=== PATIENT | female | born 1970 | race Caucasian/White ===

== ENCOUNTER 2018-02-13 15:19 | Inpatient (IN) ==
[2018-02-13 16:05] LABS: Basophils % 0.2 % (0.1-2.0); Eosinophils # 0.1 K/mm3 (0.0-0.4); Eosinophils % 0.4 % (0.1-12.0); Hemoglobin 15.2 g/dL (12.2-16.2); Lymphocytes # 1.6 K/mm3 (0.7-4.5); Mean Corpuscular HGB Conc 32.4 g/dL (31.8-35.4); Mean Corpuscular Hemoglobin 29.8 pg (27.0-31.2); Mean Platelet Volume 7.2 fl (7.4-10.4); Monocytes # 0.9 K/mm3 (0.1-1.0); Monocytes % 4.8 % (1.7-9.3); Neutrophils # 15.2 K/mm3 (1.8-7.8); Neutrophils % 85.6 % (37.0-80.0); Platelet Count 700 K/mm3 (142-424); Red Blood Count 5.11 M/mm3 (4.20-5.40); Red Cell Distribution Width 14.3 % (11.5-17.5); White Blood Count 17.8 K/mm3 (4.8-10.8)
--- NOTE | 2018-02-13 16:15 | Emergency Department Note ---
ED Disposition Clinical Impression: Hyponatremia Pancreatitis Qualifiers: Chronicity: acute Pancreatitis type: unspecified pancreatitis type Acute pancreatitis complication: unspecified Qualified Code(s): K85.90 - Acute pancreatitis without necrosis or infection, unspecified Nausea & vomiting Qualifiers: Vomiting type: unspecified Vomiting Intractability: intractable Qualified Code(s): R11.2 - Nausea with vomiting, unspecified Abdominal pain Qualifiers: Abdominal location: generalized Qualified Code(s): R10.84 - Generalized abdominal pain Disposition: Admitted as Observation Condition on Discharge: Fair Instructions: DI for Acute Abdomen, Acute Abdominal Pain Additional Instructions: DI for Pancreatitis DI for Hyponatremia DI for Nausea nad vomiting Referrals: Provider,Referral, MD [Primary Care Provider] - - Critical Care Critical Care Time: No Attestation: On 02/13/18, the high probability of a clinically significant, sudden or life threatening deterioration of the following system(s) required my full and direct attention, intervention and personal management. The time I documented below is in addition to time spent performing reported procedures but includes the following listed in this critical care notation. Medical Decision Making - Medical Records Medical records reviewed: Yes: I reviewed the patient's medical records. - Elías Inquiry Pt receiving controlled substance: No Elías was queried for this patient: No Vital Signs: 02/13/18 15:31 02/13/18 16:48 Pulse Rate [Left Radial] 124 H 118 H Respiratory Rate 40 H Blood Pressure [Right Arm] 141/91 H 130/78 Blood Pressure Mean [Right Arm] 107 95 Blood Pressure Source [Right Arm] Automatic Cuff Automatic Cuff Blood Pressure Position [Right Arm] Sitting Sitting 02 Sat by Pulse Oximetry 98 99 Oxygen Delivery Method Room Air Room Air - Lab Data Lab results reviewed: Yes: I reviewed the patient's lab results. Lab Results 02/13/18 15:50: WBC 17.8 H, RBC 5.11, Hgb 15.2, Hct 47.0, MCV 92.0, MCH 29.8, MCHC 32.4, RDW 14.3, Plt Count 700 H, MPV 7.2 L, Neut % (Auto) 85.6 H, Lymph % (Auto) 9.0 L, [place] % (Auto) 4.8, Eos % (Auto) 0.4, Baso % (Auto) 0.2, Neut # (Auto) 15.2 H, Lymph # (Auto) 1.6, [place] # (Auto) 0.9, Eos # (Auto) 0.1, Baso # (Auto) 0.0, Total Counted 100, Neutrophils % (Manual) 84 H, Lymphocytes % (Manual) 10, Monocytes % (Manual) 6, Platelet Estimate Moderate increase, RBC Morphology Normal 02/13/18 15:50: Sodium 118 L, Potassium 4.7, Chloride 83 L, Carbon Dioxide 17 L, Anion Gap 22.7 H, BUN 29 H, Creatinine 2.57 H, Estimated Creat Clear 26, Estimated GFR 20 L, Est GFR ( Amer) 24 L, Glucose 106, Calcium 10.0, Total Bilirubin 0.8, AST 91 H, ALT 63, Alkaline Phosphatase 315 H, Total Protein 8.2, Albumin 3.2 L, Globulin 5.0 H, Albumin/Globulin Ratio 0.6 L, Amylase 191 H, Lipase 785 H 02/13/18 15:50: Lactate 2.4 H Result diagrams: 02/13/18 15:50 02/13/18 15:50 Orders (Tests/Meds): ED MEDICATIONS Discontinued Medications Generic Name Dose Route Start Last Admin Trade Name Freq PRN Reason Stop Dose Admin Sodium Chloride 1,000 mls @ 999 mls/hr 02/13/18 16:15 02/13/18 16:18 Sod Chlor 0.9% 1000ml Bag IV 02/13/18 17:15 999 mls/hr .Q1H1M WHITNEY Administration Piperacillin Sod/Tazobactam 100 mls @ 200 mls/hr 02/13/18 17:45 Sod 3.375 gm/ Sodium Chloride IV 02/13/18 17:46 ONCE ONE Protocol Ketorolac Tromethamine 30 mg 02/13/18 16:18 02/13/18 17:42 Toradol 30mg/Ml Vial IV 02/13/18 16:19 30 mg ONCE ONE Administration Ondansetron HCl 8 mg 02/13/18 16:09 02/13/18 16:18 Zofran 4mg/2ml Vial IV 02/13/18 16:10 8 mg ONCE ONE Administration ORDERS Category Date Time Status CT abdomen pelvis wo con Stat Cat Scan 02/13/18 16:14 Taken Blood Culture Stat Micro 02/13/18 15:50 Received - CT Data CT Scan: Abdomen, Pelvis Time Received: 18:[address] Reviewed: Yes: I have reviewed the patient's CT results, I have viewed the radiologist's interpretation - Physician Consults Physician Consulted: Dr. Tinajero Time: 18:03 Nausea/Vomiting/Diarrhea HPI - General Chief complaint: Abdominal Pain Stated complaint: Abd pain,Vomiting,weakness Time Seen by Provider: 02/13/18 15:50 Mode of Arrival: Ambulatory Source of Information: Patient Limitations: No Limitations Description of Symptoms (Recalled from ER Triage Doc. by RN): to ed per pvt car with c/o ruq abd pain, vomiting pt with hx of pancreatitis currently has biliary drain inplace pt sees GI specialist at [facility]. - History of Present Illness MD complaint: nausea, vomiting, abdominal pain Onset (ago): day(s) (2) Description of Vomiting: food contents Associated Abdominal Pain: Yes Location of pain: RUQ Radiation: other (none) Severity: moderate Severity scale (1-10): 6 Quality: sharp Consistency: constant Relieving factors: none Exacerbating factors: none Context: other (chronic pancreatitis) - Related Data Home Medications Medication Instructions Recorded Confirmed Unobtainable 02/13/18 02/13/18 Allergies Allergy/AdvReac Type Severity Reaction Status Date / Time Penicillins Allergy Verified 02/13/18 15:35 [facility] History I have reviewed the patient's past medical history: Yes - Social History Smoking Status: Current every day smoker Tobacco Type: cigarettes Alcohol Intake: never - Psychiatric History Expresses thoughts of harming self/others: None Suicide Plan Description: No Plan ROS Obtained: Yes All systems reviewed & no additional complaints - Constitutional Constitutional: Reports system reviewed and no additional complaints, except as docu - Cardiovascular Cardiovascular: Reports system reviewed and no additional complaints, except as docu - Respiratory Respiratory: Yes system reviewed and no additional complaints, except as docu - Gastrointestinal Gastrointestingal: Reports: abdominal pain, nausea, vomiting. Denies: constipation, diarrhea - Genitourinary Female Genitourinary: Denies dysuria, Denies urinary frequency, Denies urinary hesitancy, Denies urinary urgency - Neurologic Neurologic: Reports system reviewed and no additional complaints, except as docu Physical Exam - General General appearance: alert, in distress (mild ) - Head Head exam: atraumatic, normocephalic, normal inspection - Neck Neck exam: Present: normal inspection, full ROM, trachea midline. Absent: meningismus, lymphadenopathy - Respiratory Respiratory exam: Present: normal lung sounds bilaterally. Absent: respiratory distress - Cardiovascular Cardiovascular exam: Present: regular rate, normal rhythm. Absent: JVD - Abdominal Exam Abdominal exam: Present: soft, tenderness (diffuse), normal bowel sounds. Absent: distention, guarding - Back Exam Back exam: Present: normal inspection. Absent: tenderness - Neurological Exam Neurological exam: Present: alert, oriented X3 - Psychiatric Psychiatric exam: Present: normal affect, normal mood - Skin Skin exam: Present: warm, dry, intact, normal color
[2018-02-13 16:31] LABS: Albumin Level 3.2 gm/dL (3.4-5.0); Albumin/Globulin Ratio 0.6 (1.1-1.8); Anion Gap 22.7 mEq/L (5-15); Bilirubin,Total 0.8 mg/dL (0.2-1.0); Total Protein,Serum 8.2 gm/dL (6.4-8.2)
[2018-02-13 16:36] LABS: Potassium 4.7 mmoL/L (3.5-5.1)
[2018-02-13 17:16] LABS: Lymphocytes % 10 % (10-50); Monocytes % 6 % (2-9); Neutrophils % 84 % (42-76); Total Cells Counted 100
[2018-02-13 17:18] LABS: RBC Morphology Normal
[2018-02-14 06:46] LABS: Basophils % 0.2 % (0.1-2.0); Eosinophils # 0.1 K/mm3 (0.0-0.4); Eosinophils % 0.6 % (0.1-12.0); Hematocrit 42.1 % (37.0-47.0); Lymphocytes # 2.5 K/mm3 (0.7-4.5); Lymphocytes % 13.5 % (10-50); Mean Corpuscular HGB Conc 32.1 g/dL (31.8-35.4); Mean Corpuscular Hemoglobin 29.9 pg (27.0-31.2); Mean Corpuscular Volume 93.4 fl (81-99); Mean Platelet Volume 7.2 fl (7.4-10.4); Monocytes % 5.3 % (1.7-9.3); Neutrophils # 14.6 K/mm3 (1.8-7.8); Neutrophils % 80.3 % (37.0-80.0); Platelet Count 562 K/mm3 (142-424); Red Blood Count 4.51 M/mm3 (4.20-5.40); Red Cell Distribution Width 14.3 % (11.5-17.5); White Blood Count 18.2 K/mm3 (4.8-10.8)
[2018-02-14 06:48] LABS: Albumin/Globulin Ratio 0.7 (1.1-1.8); Anion Gap 16.8 mEq/L (5-15); Bilirubin,Total 0.7 mg/dL (0.2-1.0); Globulin 4.4 gm/dl (1.3-3.2); Potassium 3.8 mmoL/L (3.5-5.1); Total Protein,Serum 7.4 gm/dL (6.4-8.2)
[2018-02-14 06:56] LABS: Hemoglobin 13.6 g/dL (12.2-16.2)
[2018-02-14 06:59] LABS: Calcium 8.8 mg/dL (8.5-10.1)
--- NOTE | 2018-02-14 08:38 | Pharmacy Consult Notes ---
[facility] Pharmacy VTE Monitoring - Patient Demographics Admission date: 02/13/18 Report Date: 02/14/18 Time: 08:38 Allergies/Adverse Reactions: Patient Allergies Penicillins Allergy (Verified 02/13/18 15:35) Height: 1.65 m Weight: 49.47 kg Patient Problems: Current Active Problems Pancreatitis (Acute) Nausea & vomiting (Acute) Hyponatremia (Acute) Abdominal pain (Acute) - VTE Risk Labs: VTE Related Lab Results Hgb 13.6 g/dL (12.2-16.2) D 02/14/18 06:14 Hct 42.1 % (37.0-47.0) 02/14/18 06:14 Plt Count 562 K/mm3 (142-424) H 02/14/18 06:14 BUN 36 mg/dL (7-18) H 02/14/18 06:14 Creatinine 3.03 mg/dL (0.55-1.02) H 02/14/18 06:14 Estimated Creat Clear 18 mL/min (50-200) 02/14/18 06:14 Was VTE Risk Assessment Performed: Yes VTE Score: 8 VTE Risk Level: Moderate Risk - Prophylaxis VTE Prophylaxis Ordered?: Yes Types of VTE Prophylaxis: TEDS Knee High Location of Applied Device: Bilateral Lower Extremeties - VTE Diagnosis Confirmed Treatment or plan recommended: Continue Current Treatment
--- NOTE | 2018-02-14 09:02 | History & Physical Report ---
*Admission Date: 02/13/18 <Naima Qureshi 02/14/18 09:10> *Chief complaint: abdominal pain, nausea, vomiting <Naima Qureshi 02/14/18 09:10> *History of present illness: Ms. Miranda is a 47-year-old female who is a patient of [facility] in [place]. She has a history of chronic alcoholic pancreatitis and also has a biliary drain in place. She sees a GI specialist at [facility] and most of her admissions have been to [facility]. She states she began having epigastric pain that then radiated to her back and the entire rest of her abdomen. She had vomiting, nausea, and diarrhea and became so weak she was unable to walk on her own. She was brought to the emergency room for evaluation and treatment and was admitted. <Naima Qureshi 02/14/18 09:10> [facility] History Medical History: Reports:: Hypertension, MRSA Denies:: Cancer (possible pancreatic), Diabetes Mellitus Type 1, Diabetes Mellitus Type 2 <Naima Qureshi 02/14/18 09:10> Other Medical History: Reports: Anemia, Fibromyalgia, Thyroid Disease <Naima Qureshi 02/14/18 09:10> Comment: Chronic pancreatitis, alcoholism, pancreatic pseudocyst <Naima Qureshi 02/14/18 09:10> Laterality Cases: Bilateral: Tonsillectomy <Naima Qureshi 02/14/18 09:10> Other Surgeries: Yes: Appendectomy, Bariatric Surgery, Cholecystectomy <Naima Qureshi 02/14/18 09:10> Amputation: No <Naima Qureshi 02/14/18 09:10> Fractures: No <Naima Qureshi 02/14/18 09:10> Comment: Biliary drain, Removal of necrotic skin around right jugular vein from cat scratch disease <Naima Qureshi 02/14/18 09:10> - *Social History Educational Level: Completed High School <Naima Qureshi 02/14/18 09:10> Smoking Status: Current every day smoker <Naima Qureshi 02/14/18 09:10> Tobacco Type: cigarettes <Naima Qureshi 02/14/18 09:10> # Packs/Day (cigarettes): 1 <TitusNaima 02/14/18 09:10> Alcohol Intake: former <Naima Qureshi 02/14/18 09:10> Substance Use Type: marijuana <Naima Qureshi 02/14/18 09:10> Last Used Substance: unknown <Naima Qureshi 02/14/18 09:10> Occupational Status: unemployed <Naima Qureshi 02/14/18 09:10> Housing: house <Naima Qureshi 02/14/18 09:10> Household Members: significant other, family, friend(s) <Naima Qureshi 02/14/18 09:10> - Psychiatric History Expresses thoughts of harming self/others: None <Naima Qureshi 02/14/18 09:10> Suicide Plan Description: No Plan <Naima Qureshi 02/14/18 09:10> *Family Hx:: Asthma, Cancer, Thyroid Disorder <Naima Qureshi 02/14/18 09:10> Review of Systems - Constitutional Reports weakness <LiorJerilyn 02/14/18 10:11> Reports anorexia, Reports weakness, Denies chills, Denies fever(s) <Greyson Qureshia 02/14/18 09:10> - Eyes Denies blurry vision, Denies double vision <TitusNaima 02/14/18 09:10> - ENT Denies nasal congestion, [facility] sore throat [facility] 02/14/18 09:10> - *Cardiovascular Denies chest pain, Denies rapid, pounding, or irregular heartbeat <Naima Qureshi 02/14/18 09:10> - *Respiratory Denies shortness of breath <[facility] 02/14/18 10:11> Reports shortness of breath, Denies cough <[facility] 02/14/18 09:10> - *Gastrointestinal Reports abdominal pain, Reports nausea, Denies loose stools, Denies vomiting <[facility] 02/14/18 10:11> Reports abdominal pain, Reports loose stools, Reports nausea, Reports vomiting <Greyson Qureshia 02/14/18 09:10> - *Genitourinary Denies difficulty urinating, Denies painful urination <Naima Qureshi - 02/14/18 09:10> - *Musculoskeletal Reports back pain <Jerilyn Ballard 02/14/18 10:11> Reports joint pain (leg), Reports back pain <Naima Qureshi - 02/14/18 09:10> - *Neurologic Reports weakness, Denies headache(s), Denies dizziness <Naima Qureshi 02/14/18 09:10> Meds Home Medications Medication Instructions Recorded Confirmed Type Unobtainable 02/13/18 02/13/18 History <Jerilyn Ballard 02/14/18 10:11> Allergies Allergy/AdvReac Type Severity Reaction Status Date / Time Penicillins Allergy Verified 02/13/18 15:35 lisinopril AdvReac Verified 02/14/18 09:06 <Jerilyn Ballard 02/14/18 10:11> Exam Vital signs and Labs for Last 24 Hours: Temp Pulse Resp BP Pulse Ox 98.6 F 97 H 16 115/88 100 02/14/18 08:00 02/14/18 08:00 02/14/18 09:31 02/14/18 08:00 02/14/18 08:00 Laboratory Results - last 24 hr 02/13/18 15:50: WBC 17.8 H, RBC 5.11, Hgb 15.2, Hct 47.0, MCV 92.0, MCH 29.8, MCHC 32.4, RDW 14.3, Plt Count 700 H, MPV 7.2 L, Neut % (Auto) 85.6 H, Lymph % (Auto) 9.0 L, [place] % (Auto) 4.8, Eos % (Auto) 0.4, Baso % (Auto) 0.2, Neut # (Auto) 15.2 H, Lymph # (Auto) 1.6, [place] # (Auto) 0.9, Eos # (Auto) 0.1, Baso # (Auto) 0.0, Total Counted 100, Neutrophils % (Manual) 84 H, Lymphocytes % (Manual) 10, Monocytes % (Manual) 6, Platelet Estimate Moderate increase, RBC Morphology Normal 02/13/18 15:50: Sodium 118 L, Potassium 4.7, Chloride 83 L, Carbon Dioxide 17 L, Anion Gap 22.7 H, BUN 29 H, Creatinine 2.57 H, Estimated Creat Clear 26, Estimated GFR 20 L, Est GFR ( Amer) 24 L, Glucose 106, Calcium 10.0, Total Bilirubin 0.8, AST 91 H, ALT 63, Alkaline Phosphatase 315 H, Total Protein 8.2, Albumin 3.2 L, Globulin 5.0 H, Albumin/Globulin Ratio 0.6 L, Amylase 191 H, Lipase 785 H 02/13/18 15:50: Lactate 2.4 H 02/13/18 20:16: Lactate 2.0 02/14/18 06:14: WBC 18.2 H, RBC 4.51, Hgb 13.6 D, Hct 42.1, MCV 93.4, MCH 29.9, MCHC 32.1, RDW 14.3, Plt Count 562 H, MPV 7.2 L, Neut % (Auto) 80.3 H, Lymph % (Auto) 13.5, [place] % (Auto) 5.3, Eos % (Auto) 0.6, Baso % (Auto) 0.2, Neut # (Auto) 14.6 H, Lymph # (Auto) 2.5, [place] # (Auto) 1.0, Eos # (Auto) 0.1, Baso # (Auto) 0.0 02/14/18 06:14: Sodium 118 L, Potassium 3.8, Chloride 85 L, Carbon Dioxide 20 L, Anion Gap 16.8 H, BUN 36 H, Creatinine 3.03 H, Estimated Creat Clear 18, Estimated GFR 16 L*, Est GFR ( Amer) 20 L, Glucose 105, Calcium 8.8 D, Magnesium 2.0, Total Bilirubin 0.7, AST 73 H, ALT 61, Alkaline Phosphatase 280 H , Total Protein 7.4, Albumin 3.0 L, Globulin 4.4 H, Albumin/Globulin Ratio 0.7 L <Sound,Jerilyn - 02/14/18 10:11> Temp Pulse Resp BP Pulse Ox 98.6 F 97 H 18 115/88 100 02/14/18 08:00 02/14/18 08:00 02/14/18 08:00 02/14/18 08:00 02/14/18 08:00 Laboratory Results - last 24 hr 02/13/18 15:50: WBC 17.8 H, RBC 5.11, Hgb 15.2, Hct 47.0, MCV 92.0, MCH 29.8, MCHC 32.4, RDW 14.3, Plt Count 700 H, MPV 7.2 L, Neut % (Auto) 85.6 H, Lymph % (Auto) 9.0 L, [place] % (Auto) 4.8, Eos % (Auto) 0.4, Baso % (Auto) 0.2, Neut # (Auto) 15.2 H, Lymph # (Auto) 1.6, [place] # (Auto) 0.9, Eos # (Auto) 0.1, Baso # (Auto) 0.0, Total Counted 100, Neutrophils % (Manual) 84 H, Lymphocytes % (Manual) 10, Monocytes % (Manual) 6, Platelet Estimate Moderate increase, RBC Morphology Normal 02/13/18 15:50: Sodium 118 L, Potassium 4.7, Chloride 83 L, Carbon Dioxide 17 L, Anion Gap 22.7 H, BUN 29 H, Creatinine 2.57 H, Estimated Creat Clear 26, Estimated GFR 20 L, Est GFR ( Amer) 24 L, Glucose 106, Calcium 10.0, Total Bilirubin 0.8, AST 91 H, ALT 63, Alkaline Phosphatase 315 H, Total Protein 8.2, Albumin 3.2 L, Globulin 5.0 H, Albumin/Globulin Ratio 0.6 L, Amylase 191 H, Lipase 785 H 02/13/18 15:50: Lactate 2.4 H 02/13/18 20:16: Lactate 2.0 02/14/18 06:14: WBC 18.2 H, RBC 4.51, Hgb 13.6 D, Hct 42.1, MCV 93.4, MCH 29.9, MCHC 32.1, RDW 14.3, Plt Count 562 H, MPV 7.2 L, Neut % (Auto) 80.3 H, Lymph % (Auto) 13.5, [place] % (Auto) 5.3, Eos % (Auto) 0.6, Baso % (Auto) 0.2, Neut # (Auto) 14.6 H, Lymph # (Auto) 2.5, [place] # (Auto) 1.0, Eos # (Auto) 0.1, Baso # (Auto) 0.0 02/14/18 06:14: Sodium 118 L, Potassium 3.8, Chloride 85 L, Carbon Dioxide 20 L, Anion Gap 16.8 H, BUN 36 H, Creatinine 3.03 H, Estimated Creat Clear 18, Estimated GFR 16 L*, Est GFR ( Amer) 20 L, Glucose 105, Calcium 8.8 D, Magnesium 2.0, Total Bilirubin 0.7, AST 73 H, ALT 61, Alkaline Phosphatase 280 H , Total Protein 7.4, Albumin 3.0 L, Globulin 4.4 H, Albumin/Globulin Ratio 0.7 L <[facility] 02/14/18 09:10> I & O for Last 24 hours: Intake & Output 02/11/18 02/12/18 02/13/18 02/14/18 11:59 11:59 11:59 11:59 Intake Total 2220 / 2220 Output Total 350 / 350 Balance 1870 / 1870 Weight 109 lb 1 oz [facility]/14[facility] 10:11> Intake & Output 02/11/18 02/12/18 02/13/18 02/14/18 11:59 11:59 11:59 11:59 Intake Total 2220 / 2220 Output Total 350 / 350 Balance 1870 / 1870 Weight 109 lb 1 oz <[facility] 02/14/18 09:10> - Constitutional no acute distress <[facility] 02/14/18 09:10> - *Routine HEENT Exam Head: Present: normocephalic <[facility] 02/14/18 10:11> Present: normocephalic <[facility] 02/14/18 09:10> Eye: Present: EOMI, PERRL <[facility] 02/14/18 10:11> Present: EOMI, PERRL <[facility] 02/14/18 09:10> ENT: Present: mucous membranes dry <[facility] 02/14/18 10:11> Present: mucous membranes dry <[facility] 02/14/18 09:10> - *Routine Neck Exam Present: supple. Absent: lymphadenopathy <[facility] 02/14/18 09:10> - *Routine Respiratory Exam Present: CTA bilaterally [facility] 02/14/18 10:11> Present: CTA bilaterally <Naima Qureshi 02/14/18 09:10> - *Routine Cardiovascular Exam Present: RRR <[facility] 02/14/18 09:10> - *Routine Abdominal Exam Present: soft, tenderness <Lior,[facility] 02/14/18 10:11> Present: soft, normoactive bowel sounds, tenderness (diffuse but worse in the epigastric area, biliary drain in place) <[facility] 02/14/18 09:10> - *Routine Extremities Exam Absent: edema <[facility] 02/14/18 10:11> Present: edema (1+ pretibial edema bilaterally) <[facility] 02/14/18 09:10> - *Routine Skin Exam Present: intact, dry <[facility] 02/14/18 10:11> Present: pallor <[facility] 02/14/18 09:10> - *Routine Neurological Exam Present: alert, oriented X3 <[facility] 02/14/18 10:11> Present: alert, oriented X3 <[facility] 02/14/18 09:10> H&P: Result - Impressions Abdominal CT - still awaiting report <Naima Qureshi 02/14/18 09:10> Assessment and Plan (1) Abdominal pain Current visit: Yes Status: Acute Qualifiers: Abdominal location: generalized Qualified Code(s): R10.84 - Generalized abdominal pain Category: Medical Code(s): R10.9 - Unspecified abdominal pain (2) Hyponatremia Current visit: Yes Status: Acute Category: Medical Code(s): E87.1 - Hypo- osmolality and hyponatremia (3) Nausea & vomiting Current visit: Yes Status: Acute Qualifiers: Vomiting type: unspecified Vomiting Intractability: intractable Qualified Code(s): R11.2 - Nausea with vomiting, unspecified Category: Medical Code(s): R11.2 - Nausea with vomiting, unspecified (4) Pancreatitis Current visit: Yes Status: Acute Qualifiers: Chronicity: acute Pancreatitis type: unspecified pancreatitis type Acute pancreatitis complication: unspecified Qualified Code(s): K85.90 - Acute pancreatitis without necrosis or infection, unspecified Category: Medical Code(s): K85.90 - Acute pancreatitis without necrosis or infection, unspecified (5) Renal insufficiency Current visit: Yes Status: Acute Category: Medical Code(s): N28.9 - Disorder of kidney and ureter, unspecified (6) Elevated lactic acid level Current visit: Yes Status: Acute Category: Medical Code(s): R79.89 - Other specified abnormal findings of blood chemistry (7) Chronic alcoholic pancreatitis Current visit: Yes Status: Chronic Category: Medical Code(s): K86.0 - Alcohol-induced chronic pancreatitis <Naima Qureshi - 02/14/18 08:59> (1) Abdominal pain Current visit: Yes Status: Acute Qualifiers: Abdominal location: generalized Qualified Code(s): R10.84 - Generalized abdominal pain Category: Medical Code(s): R10.9 - Unspecified abdominal pain (2) Hyponatremia Current visit: Yes Status: Acute Category: Medical Code(s): E87.1 - Hypo-osmolality and hyponatremia (3) Nausea & vomiting Current visit: Yes Status: Acute Qualifiers: Vomiting type: unspecified Vomiting Intractability: intractable Qualified Code(s): R11.2 - Nausea with vomiting, unspecified Category: Medical Code(s): R11.2 - Nausea with vomiting, unspecified (4) Pancreatitis Current visit: Yes Status: Acute Qualifiers: Chronicity: acute Pancreatitis type: unspecified pancreatitis type Acute pancreatitis complication: unspecified Qualified Code(s): K85.90 - Acute pancreatitis without necrosis or infection, unspecified Category: Medical Code(s): K85.90 - Acute pancreatitis without necrosis or infection, unspecified (5) Renal insufficiency Current visit: Yes Status: Acute Category: Medical Code(s): N28.9 - Disorder of kidney and ureter, unspecified (6) Elevated lactic acid level Current visit: Yes Status: Acute Category: Medical Code(s): R79.89 - Other specified abnormal findings of blood chemistry (7) Chronic alcoholic pancreatitis Current visit: Yes Status: Chronic Category: Medical Code(s): K86.0 - Alcohol-induced chronic pancreatitis <LiorJerilyn - 02/14/18 10:11> - Assessment and plan all Dx Assessment and Plan for all problems:: Will advance diet as tolerated, as her pancreatitis is chronic. Will trend WBC. <Jerilyn Ballard - 02/14/18 10:11> Patient has been started on pain medication, Protonix, and IV fluids. Will discuss further care with Dr. ballard. <Naima Qureshi - 02/14/18 09:10>
[2018-02-14 12:48] LABS: Lymphocytes % 10 % (10-50); Monocytes % 3 % (2-9); Neutrophils % 85 % (42-76); Total Cells Counted 100
[2018-02-14 13:34] LABS: Free T4 (Free Thyroxine) 1.23 ng/dl (0.76-1.46); Thyroid Stimulating Hormone 11.26 uIU/ml (0.358-3.740); Uric Acid 9.5 mg/dL (2.6-7.2)
[2018-02-15 10:20] LABS: Basophils % 0.1 % (0.1-2.0); Eosinophils # 0.1 K/mm3 (0.0-0.4); Eosinophils % 0.3 % (0.1-12.0); Hematocrit 36.2 % (37.0-47.0); Hemoglobin 11.6 g/dL (12.2-16.2); Lymphocytes # 1.5 K/mm3 (0.7-4.5); Lymphocytes % 8.9 % (10-50); Mean Corpuscular HGB Conc 32.2 g/dL (31.8-35.4); Mean Corpuscular Hemoglobin 30.1 pg (27.0-31.2); Mean Corpuscular Volume 93.5 fl (81-99); Mean Platelet Volume 8.1 fl (7.4-10.4); Monocytes # 1.1 K/mm3 (0.1-1.0); Monocytes % 6.1 % (1.7-9.3); Neutrophils # 14.6 K/mm3 (1.8-7.8); Neutrophils % 84.6 % (37.0-80.0); Platelet Count 492 K/mm3 (142-424); Red Blood Count 3.87 M/mm3 (4.20-5.40); Red Cell Distribution Width 14.4 % (11.5-17.5); White Blood Count 17.3 K/mm3 (4.8-10.8)
[2018-02-15 10:51] LABS: Lymphocytes % 7 % (10-50); Monocytes % 2 % (2-9); Neutrophils % 91 % (42-76); RBC Morphology Normal; Total Cells Counted 100
--- NOTE | 2018-02-15 11:04 | Progress Note ---
Internal Medicine - PN: Subj *Date: 02/15/18 *Time: 10:15 Interval history: Patient doing well. Slept well overnight, was able to tolerate full regular diet. Exam Vital signs and Labs for Last 24 Hours: Temp Pulse Resp BP Pulse Ox 97.4 F L 98 H 20 125/90 100 02/15/18 08:00 02/15/18 08:00 02/15/18 08:00 02/15/18 08:00 02/15/18 08:00 Laboratory Results - last 24 hr 02/14/18 06:14: Total Counted 100, Neutrophils % (Manual) 85 H, Band Neutrophils % 2.0, Lymphocytes % (Manual) 10, Monocytes % (Manual) 3, Platelet Estimate Marked increase 02/14/18 06:14: Uric Acid 9.5 H, TSH 11.26 H, Free T4 1.23 02/15/18 06:55: Sodium 117 L 02/15/18 06:55: WBC 17.3 H, RBC 3.87 L, Hgb 11.6 L, Hct 36.2 L, MCV 93.5, MCH 30.1, MCHC 32.2, RDW 14.4, Plt Count 492 H, MPV 8.1, Neut % (Auto) 84.6 H, Lymph % (Auto) 8.9 L, [place] % (Auto) 6.1, Eos % (Auto) 0.3, Baso % (Auto) 0.1, Neut # (Auto) 14.6 H, Lymph # (Auto) 1.5, [place] # (Auto) 1.1 H, Eos # (Auto) 0.1, Baso # (Auto) 0.0, Total Counted 100, Neutrophils % (Manual) 91 H, Lymphocytes % (Manual) 7 L, Monocytes % (Manual) 2, Platelet Estimate Slight increase, RBC Morphology Normal I & O for Last 24 hours: Intake & Output 02/12/18 02/13/18 02/14/18 02/15/18 11:59 11:59 11:59 11:59 Intake Total 2220 / 2220 1687 / 1687 Output Total 350 / 350 450 / 450 Balance 1870 / 1870 1237 / 1237 Weight 109 lb 1 oz 109 lb 1.003 oz - *Routine HEENT Exam Head: Present: normocephalic Eye: Present: EOMI ENT: Present: mucous membranes moist - *Routine Neck Exam Present: supple, full ROM - *Routine Respiratory Exam Present: CTA bilaterally - *Routine Cardiovascular Exam Present: RRR - *Routine Abdominal Exam Present: soft, normoactive bowel sounds, tenderness (On the right upper quadrant where she had the stent placement in the past) - *Routine Extremities Exam Absent: edema - *Routine Skin Exam Present: intact - *Routine Neurological Exam Present: alert, oriented X3 - Routine Psychiatric Exam Present: normal affect Assessment and Plan (1) Chronic alcoholic pancreatitis Current visit: Yes Status: Chronic Category: Medical Code(s): K86.0 - Alcohol-induced chronic pancreatitis (2) Abdominal pain Current visit: Yes Status: Acute Qualifiers: Abdominal location: generalized Qualified Code(s): R10.84 - Generalized abdominal pain Category: Medical Code(s): R10.9 - Unspecified abdominal pain Chronic secondary to chronic pancreatitis (3) Hyponatremia Current visit: Yes Status: Acute Category: Medical Code(s): E87.1 - Hypo- osmolality and hyponatremia Secondary to hypothyroidism (4) Nausea & vomiting Current visit: Yes Status: Acute Qualifiers: Vomiting type: unspecified Vomiting Intractability: intractable Qualified Code(s): R11.2 - Nausea with vomiting, unspecified Category: Medical Code(s): R11.2 - Nausea with vomiting, unspecified Resolved (5) Hypothyroid Current visit: Yes Status: Acute Category: Medical Code(s): E03.9 - Hypothyroidism, unspecified Started on 25 mcg of levothyroxine (6) Chronic pain syndrome Current visit: Yes Status: Acute Category: Medical Code(s): G89.4 - Chronic pain syndrome Started on [place] 5 mg twice daily - Assessment and plan all Dx Assessment and Plan for all problems:: Her white count is related to chronic pancreatitis. Will discharge her home with a week's worth of pain medication. Patient is to follow-up with the pain management as an outpatient.
[2018-02-16 06:40] LABS: Eosinophils # 0.1 K/mm3 (0.0-0.4); Eosinophils % 1.1 % (0.1-12.0); Monocytes # 0.8 K/mm3 (0.1-1.0); Red Cell Distribution Width 14.4 % (11.5-17.5)
[2018-02-16 06:54] LABS: Basophils % 0.2 % (0.1-2.0); Hematocrit 32.4 % (37.0-47.0); Lymphocytes # 1.8 K/mm3 (0.7-4.5); Mean Corpuscular HGB Conc 31.7 g/dL (31.8-35.4); Mean Corpuscular Hemoglobin 29.8 pg (27.0-31.2); Mean Platelet Volume 7.5 fl (7.4-10.4); Monocytes % 7.2 % (1.7-9.3); Neutrophils # 8.6 K/mm3 (1.8-7.8); Neutrophils % 75.5 % (37.0-80.0); Platelet Count 423 K/mm3 (142-424); Red Blood Count 3.45 M/mm3 (4.20-5.40); White Blood Count 11.5 K/mm3 (4.8-10.8)
[2018-02-16 07:20] LABS: Hemoglobin 10.3 g/dL (12.2-16.2)
--- NOTE | 2018-02-16 10:21 | Progress Note ---
Internal Medicine - PN: Subj *Date: 02/16/18 *Time: 10:00 Interval history: Patient mentions that her pain is much better with p.o. pain medications. She was eating her breakfast this morning during rounds. She mentions that she is still not comfortable going home today as she is scared that she might fall because of her pain. She mentioned that she does have [facility] at home. She would like to stay for 1 more day and get some strength back before going home. Exam Vital signs and Labs for Last 24 Hours: Temp Pulse Resp BP Pulse Ox 97.8 F 92 H 18 90/64 L 100 02/16/18 07:40 02/16/18 07:40 02/16/18 07:40 02/16/18 07:40 02/16/18 08:00 Laboratory Results - last 24 hr 02/15/18 06:55: WBC 17.3 H, RBC 3.87 L, Hgb 11.6 L, Hct 36.2 L, MCV 93.5, MCH 30.1, MCHC 32.2, RDW 14.4, Plt Count 492 H, MPV 8.1, Neut % (Auto) 84.6 H, Lymph % (Auto) 8.9 L, [place] % (Auto) 6.1, Eos % (Auto) 0.3, Baso % (Auto) 0.1, Neut # (Auto) 14.6 H, Lymph # (Auto) 1.5, [place] # (Auto) 1.1 H, Eos # (Auto) 0.1, Baso # (Auto) 0.0, Total Counted 100, Neutrophils % (Manual) 91 H, Lymphocytes % (Manual) 7 L, Monocytes % (Manual) 2, Platelet Estimate Slight increase, RBC Morphology Normal 02/16/18 06:10: WBC 11.5 H D, RBC 3.45 L, Hgb 10.3 L D, Hct 32.4 L, MCV 94.0, MCH 29.8, MCHC 31.7 L, RDW 14.4, Plt Count 423, MPV 7.5, Neut % (Auto) 75.5, Lymph % (Auto) 16.0, [place] % (Auto) 7.2, Eos % (Auto) 1.1, Baso % (Auto) 0.2, Neut # (Auto) 8.6 H, Lymph # (Auto) 1.8, [place] # (Auto) 0.8, Eos # (Auto) 0.1, Baso # (Auto) 0.0 I & O for Last 24 hours: Intake & Output 02/13/18 02/14/18 02/15/18 02/16/18 11:59 11:59 11:59 11:59 Intake Total 2220 / 2220 1687 / 1687 2525 / 2525 Output Total 350 / 350 450 / 450 875 / 875 Balance 1870 / 1870 1237 / 1237 1650 / 1650 Weight 109 lb 1 oz 109 lb 1.003 oz Microbiology Reports for the Last 24 Hours: Microbiology 02/13/18 15:50 Blood Blood Culture - Preliminary NO GROWTH AFTER 48 HOURS 02/13/18 15:50 Blood Blood Culture - Preliminary NO GROWTH AFTER 48 HOURS - *Routine HEENT Exam Head: Present: normocephalic Eye: Present: EOMI ENT: Present: mucous membranes moist - *Routine Neck Exam Present: supple - *Routine Respiratory Exam Present: CTA bilaterally - *Routine Cardiovascular Exam Present: RRR - *Routine Abdominal Exam Present: soft, normoactive bowel sounds, tenderness (On right upper quadrant upon palpation) - *Routine Extremities Exam Absent: edema - *Routine Skin Exam Present: intact - *Routine Neurological Exam Present: alert, oriented X3 - Routine Psychiatric Exam Present: normal affect Assessment and Plan (1) Chronic alcoholic pancreatitis Current visit: Yes Status: Chronic Category: Medical Code(s): K86.0 - Alcohol-induced chronic pancreatitis (2) Abdominal pain Current visit: Yes Status: Acute Qualifiers: Abdominal location: generalized Qualified Code(s): R10.84 - Generalized abdominal pain Category: Medical Code(s): R10.9 - Unspecified abdominal pain (3) Hyponatremia Current visit: Yes Status: Acute Category: Medical Code(s): E87.1 - Hypo- osmolality and hyponatremia (4) Nausea & vomiting Current visit: Yes Status: Acute Qualifiers: Vomiting type: unspecified Vomiting Intractability: intractable Qualified Code(s): R11.2 - Nausea with vomiting, unspecified Category: Medical Code(s): R11.2 - Nausea with vomiting, unspecified (5) Hypothyroid Current visit: Yes Status: Acute Category: Medical Code(s): E03.9 - Hypothyroidism, unspecified (6) Chronic pain syndrome Current visit: Yes Status: Acute Category: Medical Code(s): G89.4 - Chronic pain syndrome - Assessment and plan all Dx Assessment and Plan for all problems:: We will continue current treatment, start some physical therapy on her via nurses. Consult PT if needed. Patient will be discharged home tomorrow with home health. Scripts are already printed.
[2018-02-17 07:43] LABS: Basophils % 0.1 % (0.1-2.0); Eosinophils # 0.1 K/mm3 (0.0-0.4); Eosinophils % 1.1 % (0.1-12.0); Hematocrit 32.8 % (37.0-47.0); Hemoglobin 10.6 g/dL (12.2-16.2); Lymphocytes # 1.8 K/mm3 (0.7-4.5); Lymphocytes % 16.7 % (10-50); Mean Corpuscular HGB Conc 32.5 g/dL (31.8-35.4); Mean Corpuscular Hemoglobin 30.3 pg (27.0-31.2); Mean Corpuscular Volume 93.3 fl (81-99); Mean Platelet Volume 7.5 fl (7.4-10.4); Monocytes # 0.8 K/mm3 (0.1-1.0); Monocytes % 7.6 % (1.7-9.3); Neutrophils # 7.9 K/mm3 (1.8-7.8); Neutrophils % 74.4 % (37.0-80.0); Platelet Count 403 K/mm3 (142-424); Red Blood Count 3.51 M/mm3 (4.20-5.40); Red Cell Distribution Width 14.7 % (11.5-17.5); White Blood Count 10.6 K/mm3 (4.8-10.8)
--- NOTE | 2018-02-17 10:35 | Discharge Summary ---
General - General Admission date:: 02/13/18 Discharge date: 02/17/18 HPI HPI: Ms. Miranda is a 47-year-old female who is a patient of [facility] in [facility]. She has a history of chronic alcoholic pancreatitis and also has a biliary drain in place. She sees a GI specialist at [place] and most of her admissions have been to [facility]. She states she began having epigastric pain that then radiated to her back and the entire rest of her abdomen. She had vomiting, nausea, and diarrhea and became so weak she was unable to walk on her own. She was brought to the emergency room for evaluation and treatment and was admitted. Hospital Course Hospital Course: Patient was admitted to our facility for chronic pancreatitis. She was started on IV pain medications and anti-nausea meds. She tolerated regular diet by day 3 of hospital course. So her IV pain meds was switched to PO meds. She tolerated full diet and was able to control her pain with PO pain meds. Will DC home today and she already has [employer] that is coming to her. She was also given scripts for [place] for a week. Will set her up with outpatient pain management when we see her in clinic. She needs to f/u with [facility] for her stent check-up in 2 weeks (she already has an appt for this). Objective Vital signs: Temp Pulse Resp BP Pulse Ox 97.7 F 100 H 18 96/69 L 100 02/17/18 08:00 02/17/18 08:00 02/17/18 09:30 02/17/18 08:00 02/17/18 08:00 - *Routine HEENT Exam Head: Present: normocephalic Eye: Present: EOMI ENT: Present: mucous membranes moist - *Routine Neck Exam Present: supple - *Routine Respiratory Exam Present: CTA bilaterally - *Routine Cardiovascular Exam Present: RRR - *Routine Abdominal Exam Present: soft, normoactive bowel sounds, tenderness (mild tenderness in RUQ ) - *Routine Extremities Exam Absent: edema - *Routine Skin Exam Present: intact - *Routine Neurological Exam Present: alert, oriented X3 - Routine Psychiatric Exam Present: normal affect Results Labs on day of discharge: Labs from last 24 hours 02/17/18 07:27 WBC 10.6 RBC 3.51 L Hgb 10.6 L Hct 32.8 L MCV 93.3 MCH 30.3 MCHC 32.5 RDW 14.7 Plt Count 403 MPV 7.5 Neut % (Auto) 74.4 Lymph % (Auto) 16.7 [place] % (Auto) 7.6 Eos % (Auto) 1.1 Baso % (Auto) 0.1 Neut # (Auto) 7.9 H Lymph # (Auto) 1.8 [place] # (Auto) 0.8 Eos # (Auto) 0.1 Baso # (Auto) 0.0 Preliminary micro results at discharge 02/13/18 15:50 Blood Culture - Preliminary Blood NO GROWTH AFTER 48 HOURS 02/13/18 15:50 Blood Culture - Preliminary Blood NO GROWTH AFTER 48 HOURS DS: Diagnosis - Discharge Diagnosis (1) Chronic alcoholic pancreatitis Status: Chronic (2) Abdominal pain Status: Acute (3) Hyponatremia Status: Acute (4) Nausea & vomiting Status: Acute (5) Hypothyroid Status: Acute (6) Chronic pain syndrome Status: Acute Discharge Plan - Patient Discharge Instructions ACTIVITY: Continue current activity DIET: continue same diet Patient Instructions: DI for Pancreatitis - Follow up Plan Disposition: Home, Self-Residential Medications: Home Medications Medication Instructions Recorded Confirmed Type Buspirone HCl [Buspar 5mg tablet] 30 mg PO HS 02/14/18 02/14/18 History Dicyclomine HCl 20 mg PO QID 02/14/18 02/14/18 History Famotidine [Acid Controller] 20 mg PO DAILY 02/14/18 02/14/18 History Gabapentin [Gabapentin 100mg Cap] 100 mg PO TID 02/14/18 02/14/18 History Loratadine [Allergy] 10 mg PO DAILY 02/14/18 02/14/18 History Metoprolol Tartrate [Lopressor 25 mg PO BID 02/14/18 02/14/18 History 25mg tablet] Ondansetron [Zofran 4mg ODT] 4 mg PO DAILYP PRN 02/14/18 02/14/18 History Pantoprazole Sodium [Protonix 40mg 40 mg PO BID 02/14/18 02/14/18 History tablet] Polyethylene Glycol 3350 [Miralax 17 gm PO DAILY 02/14/18 02/14/18 History Powder] Potassium Chloride 20 meq PO BID 02/14/18 02/14/18 History Potassium Chloride [Klor-con 20 20 meq PO BID 02/14/18 02/14/18 History mEq tablet] Promethazine HCl [Phenadoz] 12.5 mg RC Q4HP PRN 02/14/18 02/14/18 History Promethazine HCl [Phenergan 12.5mg 12.5 - 25 mg PO Q4HP PRN 02/14/18 02/14/18 History tablet] Sennosides/Docusate Sodium [Stool 1 each PO HS 02/14/18 02/14/18 History Softener-Laxative Tablet] Sodium Bicarbonate [Sodium 1,300 mg PO TID 02/14/18 02/14/18 History Bicarbonate 650mg Tablet] miSOPROStol [Cytotec 200mcg tablet] 100 mcg PO TID 02/14/18 02/14/18 History Prescriptions/Medication Reconciliation: New Hydrocod/Acet 5/325 mg [[place] 5/325mg tablet] 1 tab PO BIDP PRN #10 tab PRN Reason: pain Levothyroxine Sodium [Synthroid 25mcg (0.025mg) tablet] 25 mcg PO DAILYDM #30 tab Nicotine [Nicoderm 21mg/24hr patch] 21 mg TD DAILYP PRN #30 patch.td24 PRN Reason: Nicotine Cravings Pantoprazole Sodium [Protonix 40mg tablet] 40 mg PO DAILY #30 tablet. Promethazine HCl [Phenergan 12.5mg tablet] 12.5 mg PO Q6HP PRN 30 Days tab PRN Reason: Nausea And Vomiting Continue Sodium Bicarbonate [Sodium Bicarbonate 650mg Tablet] 1,300 mg PO TID Pantoprazole Sodium [Protonix 40mg tablet] 40 mg PO BID Famotidine [Acid Controller] 20 mg PO DAILY Buspirone HCl [Buspar 5mg tablet] 30 mg PO HS Loratadine [Allergy] 10 mg PO DAILY Ondansetron [Zofran 4mg ODT] 4 mg PO DAILYP PRN PRN Reason: Nausea Sennosides/Docusate Sodium [Stool Softener-Laxative Tablet] 1 each PO HS Promethazine HCl [Phenadoz] 12.5 mg RC Q4HP PRN PRN Reason: NAUSEA/VOMITING Metoprolol Tartrate [Lopressor 25mg tablet] 25 mg PO BID Gabapentin [Gabapentin 100mg Cap] 100 mg PO TID Promethazine HCl [Phenergan 12.5mg tablet] 12.5 - 25 mg PO Q4HP PRN PRN Reason: NAUSEA/VOMITING Potassium Chloride [Klor-con 20 mEq tablet] 20 meq PO BID Potassium Chloride 20 meq PO BID miSOPROStol [Cytotec 200mcg tablet] 100 mcg PO TID Polyethylene Glycol 3350 [Miralax Powder] 17 gm PO DAILY Dicyclomine HCl 20 mg PO QID
== END 2018-02-17 12:00 | disposition home health service (06) ==
LOC: 2ND 15:19 → ER 15:19 → OBSVTOIN 19:38 → 2ND 19:39
PROVIDERS: ADMIT Emergency Medicine; ATTEND Emergency Medicine